=== PATIENT | male | born 1955 | race Caucasian/White ===

== ENCOUNTER 2017-12-23 01:45 | Inpatient (IN) | payer BC ==
[~2017-12-23] VITALS: Ht 177.8 cm; Wt 96.5 kg
[2017-12-23] MEDS ORDERED: SODIUM CHLORIDE FLUSH 10ML SYR IVF ONE (02:00)
[2017-12-23 02:19] LABS: BASOPHILS # (AUTO) 0.02 x10^3/uL (0-0.1); BASOPHILS % (AUTO) 0 % (0-1); EOSINOPHILS # (AUTO) 0.12 x10^3/uL (0-0.4); EOSINOPHILS % (AUTO) 1 % (1-7); LYMPHOCYTES # (AUTO) 1.17 x10^3/uL (1-3.4); LYMPHOCYTES % (AUTO) 11 % (22-44); MD NO; MEAN CORPUSCULAR HEMOGLOBIN 29.5 pg (27.5-34.5); MEAN CORPUSCULAR VOLUME 86.8 fL (81-97); MEAN PLATELET VOLUME 8.1 fL (7.4-10.4); MONOCYTES # (AUTO) 0.29 x10^3/uL (0.2-0.8); MONOCYTES % (AUTO) 3 % (2-9); NEUTROPHILS # (AUTO) 8.64 x10^3/uL (1.8-6.8); NEUTROPHILS % (AUTO) 84 % (42-75); PLATELET COUNT 240 x10^3/uL (130-400); RED BLOOD COUNT 4.15 x10^6/uL (4.38-5.82); RED CELL DISTRIBUTION WIDTH 13.4 % (9.4-14.8)
[2017-12-23 02:30] LABS: ALANINE AMINOTRANSFERASE 27 U/L (12-78); ALBUMIN 3.1 g/dL (3.4-5.0); ANION GAP 9 mmol/L (5-15); CALCIUM 8.2 mg/dL (8.5-10.1); CHLORIDE 105 mmol/L (98-107); CREATININE 1.17 mg/dL (0.7-1.3)
[2017-12-23 02:33] LABS: ALKALINE PHOSPHATASE 43 U/L (45-117); BILIRUBIN,TOTAL 1.3 mg/dL (0.2-1.0)
[2017-12-23 02:38] LABS: TROPONIN I < 0.015 ng/mL (0.000-0.045)
[2017-12-23] MEDS ORDERED: ONDANSETRON ODT 4 MG ONE (02:40)
[2017-12-23] MEDS ORDERED: MORPHINE SULFATE 4 MG/ML, 1ML ONE (02:41)
[2017-12-23] MEDS ORDERED: ONDANSETRON ODT 4 MG PO ONE (03:00)
[2017-12-23] MEDS ORDERED: MORPHINE SULFATE 4 MG/ML, 1ML IVPush PRN (03:00)
[2017-12-23] MEDS ORDERED: OMNIPAQUE 350 MG/ML, 100ML BOTTLE ONE (03:26)
[2017-12-23] MEDS ORDERED: MULT-508 PO (03:41)
[2017-12-23] MEDS ORDERED: METF500T17 PO (03:41)
[2017-12-23] MEDS ORDERED: PRAV10TA2 PO (03:41)
[2017-12-23] MEDS ORDERED: UBID10CA5 PO (03:41)
[2017-12-23] MEDS ORDERED: LOSA1TAB25 PO (03:41)
[2017-12-23] MEDS ORDERED: PANTOPRAZOLE 80 MG in SODIUM CHLORIDE 0.9% 50 ML IVPB ONE (04:23)
[2017-12-23] MEDS ORDERED: hydrALAzine 20 MG/ML, 1ML IVPush PRN (04:30)
[2017-12-23] MEDS ORDERED: ONDANSETRON 2MG/ML, 2ML IVPush PRN (04:30)
[2017-12-23] MEDS ORDERED: METOCLOPRAMIDE 5 MG/ML, 2ML IVPush PRN (04:30)
[2017-12-23] MEDS ORDERED: morphine SULFATE 10 MG/ML, 1ML IVPush PRN (04:30)
[2017-12-23] MEDS: SODIUM CHLORIDE 0.9% 1,000 ML IV SCH ×2 (04:53→17:37)
[2017-12-23 04:57] LABS: MICROSCOPIC NOT IND
[2017-12-23 04:59] LABS: CULTURE INDICATED? NO
[2017-12-23 05:16] VITALS: BP 115/79
[2017-12-23] MEDS: INSULIN LISPRO 100 UNITS/ML, PEN SQ-INSULIN SCH ×4 (07:00→21:00)
[2017-12-23 08:08] VITALS: BP 113/78
[2017-12-23] MEDS: PANTOPRAZOLE 40 MG IV IVPush SCH ×2 (09:14→22:03)
[2017-12-23 13:34] VITALS: BP 121/75
[2017-12-23] MEDS: MOVIPREP POWDER 1 PREP KIT PO SCH (19:24)
[2017-12-23 20:00] VITALS: BP 132/78
[2017-12-24 01:18] VITALS: BP 128/75
[2017-12-24] MEDS: MOVIPREP POWDER 1 PREP KIT PO SCH (03:51)
[2017-12-24] MEDS: SODIUM CHLORIDE 0.9% 1,000 ML IV SCH (03:52)
[2017-12-24 06:06] LABS: BASOPHILS # (AUTO) 0.02 x10^3/uL (0-0.1); BASOPHILS % (AUTO) 0 % (0-1); EOSINOPHILS # (AUTO) 0.21 x10^3/uL (0-0.4); EOSINOPHILS % (AUTO) 3 % (1-7); LYMPHOCYTES # (AUTO) 2.25 x10^3/uL (1-3.4); LYMPHOCYTES % (AUTO) 27 % (22-44); MD NO; MEAN CORPUSCULAR HEMOGLOBIN 29.8 pg (27.5-34.5); MEAN CORPUSCULAR HGB CONC 34.5 g/dL (33.2-36.2); MEAN CORPUSCULAR VOLUME 86.5 fL (81-97); MEAN PLATELET VOLUME 8.4 fL (7.4-10.4); MONOCYTES # (AUTO) 0.34 x10^3/uL (0.2-0.8); MONOCYTES % (AUTO) 4 % (2-9); NEUTROPHILS # (AUTO) 5.51 x10^3/uL (1.8-6.8); NEUTROPHILS % (AUTO) 66 % (42-75); PLATELET COUNT 241 x10^3/uL (130-400); RED BLOOD COUNT 3.69 x10^6/uL (4.38-5.82); RED CELL DISTRIBUTION WIDTH 13.8 % (9.4-14.8)
[2017-12-24 06:12] LABS: CHLORIDE 109 mmol/L (98-107)
[2017-12-24 06:17] LABS: ANION GAP 11 mmol/L (5-15); CREATININE 1.16 mg/dL (0.7-1.3)
[2017-12-24] MEDS: INSULIN LISPRO 100 UNITS/ML, PEN SQ-INSULIN SCH ×4 (07:00→21:00)
[2017-12-24 07:24] VITALS: BP 113/62
[2017-12-24 07:25] VITALS: BP 124/82
[2017-12-24 07:26] VITALS: BP 122/83
[2017-12-24] MEDS ORDERED: D5%-0.45NACL+KCL 20MEQ 1,000 ML IV SCH (09:00)
[2017-12-24] MEDS: NEUTRA PHOS K 250 MG TABLET PO SCH ×3 (09:41→21:10)
[2017-12-24] MEDS: PANTOPRAZOLE 40 MG IV IVPush SCH ×2 (09:41→21:11)
[2017-12-24] MEDS ORDERED: PROPOFOL 10 MG/ML, 20ML ONE (12:57)
[2017-12-24] MEDS ORDERED: OXYcodone 5 MG/5 ML ORAL.SOL UDC PO PRN (14:00)
[2017-12-24] MEDS ORDERED: ONDANSETRON 2MG/ML, 2ML IV PRN (14:00)
[2017-12-24] MEDS ORDERED: ONDANSETRON ODT 8 MG PO PRN (14:00)
[2017-12-24] MEDS ORDERED: ACETAMINOPHEN 325 MG TABLET PO PRN (14:00)
[2017-12-24 14:30] VITALS: BP 136/82
[2017-12-24] MEDS: SUCRALFATE 1 GM/10 ML UDC PO SCH ×2 (16:16→21:10)
[2017-12-24 19:47] VITALS: BP 138/80
[2017-12-25 00:43] VITALS: BP 140/82
[2017-12-25 05:51] LABS: ALANINE AMINOTRANSFERASE 27 U/L (12-78); ALBUMIN 3.1 g/dL (3.4-5.0); ANION GAP 5 mmol/L (5-15); CALCIUM 7.7 mg/dL (8.5-10.1); CHLORIDE 110 mmol/L (98-107); CREATININE 0.93 mg/dL (0.7-1.3)
[2017-12-25 05:53] LABS: ALKALINE PHOSPHATASE 38 U/L (45-117); BASOPHILS # (AUTO) 0.03 x10^3/uL (0-0.1); BASOPHILS % (AUTO) 0 % (0-1); BILIRUBIN,TOTAL 0.8 mg/dL (0.2-1.0); EOSINOPHILS # (AUTO) 0.24 x10^3/uL (0-0.4); EOSINOPHILS % (AUTO) 3 % (1-7); LYMPHOCYTES % (AUTO) 21 % (22-44); MD NO; MEAN CORPUSCULAR HEMOGLOBIN 29.5 pg (27.5-34.5); MEAN CORPUSCULAR HGB CONC 33.9 g/dL (33.2-36.2); MEAN CORPUSCULAR VOLUME 86.9 fL (81-97); MEAN PLATELET VOLUME 8.1 fL (7.4-10.4); MONOCYTES # (AUTO) 0.33 x10^3/uL (0.2-0.8); MONOCYTES % (AUTO) 5 % (2-9); NEUTROPHILS # (AUTO) 5.17 x10^3/uL (1.8-6.8); NEUTROPHILS % (AUTO) 71 % (42-75); PLATELET COUNT 228 x10^3/uL (130-400); RED BLOOD COUNT 3.42 x10^6/uL (4.38-5.82); RED CELL DISTRIBUTION WIDTH 13.1 % (9.4-14.8); TOTAL PROTEIN 5.7 g/dL (6.4-8.2)
[2017-12-25] MEDS: INSULIN LISPRO 100 UNITS/ML, PEN SQ-INSULIN SCH ×2 (07:00→11:00)
[2017-12-25 07:36] VITALS: BP 134/86
[2017-12-25] MEDS: SUCRALFATE 1 GM/10 ML UDC PO SCH ×2 (08:05→11:09)
[2017-12-25] MEDS: PANTOPRAZOLE 40 MG IV IVPush SCH (08:05)
[2017-12-25 12:23] VITALS: BP 148/83
[2017-12-25 12:44] LABS: HEMOGLOBIN A1C 6.9 % (4.2-6.3)
[2017-12-25] MEDS ORDERED: OMEP-110 PO (14:46)
[2017-12-25] MEDS ORDERED: SUCR1ORA5 PO (14:46)
[2017-12-25] MEDS ORDERED: OMEPRAZOLE 20 MG CAPSULE.DR PO SCH (17:00)
== END 2017-12-25 16:47 | disposition home or self-care (01) | DRG 391 ==
LOC: ED 03:26 → EDIP 04:10 → 4EST 05:30 → DCLOUNGE 12-25 16:30
PROVIDERS: ADMIT Hospitalist; ATTEND Hospitalist
PROC: 0DJD8ZZ Inspection of Lower Intestinal Tract, Via Natural or Artificial Opening Endoscopic (ICD-10-PCS; 2017-12-24)
PROC: 0DJ08ZZ Inspection of Upper Intestinal Tract, Via Natural or Artificial Opening Endoscopic (ICD-10-PCS; principal; 2017-12-24 13:00)
DX: K52.9 Noninfective gastroenteritis and colitis, unspecified (principal); K22.11 Ulcer of esophagus with bleeding; K57.31 Diverticulosis of large intestine without perforation or abscess with bleeding; K25.4 Chronic or unspecified gastric ulcer with hemorrhage; D62 Acute posthemorrhagic anemia; K64.8 Other hemorrhoids; E11.65 Type 2 diabetes mellitus with hyperglycemia; E66.9 Obesity, unspecified; E78.00 Pure hypercholesterolemia, unspecified; E78.5 Hyperlipidemia, unspecified; G89.29 Other chronic pain; I10 Essential (primary) hypertension; R55 Syncope and collapse; K44.9 Diaphragmatic hernia without obstruction or gangrene; K80.20 Calculus of gallbladder without cholecystitis without obstruction; S09.90XA Unspecified injury of head, initial encounter; W18.30XA Fall on same level, unspecified, initial encounter; Y93.89 Activity, other specified; Y92.008 Other place in unspecified non-institutional (private) residence as the place of occurrence of the external cause; Y99.8 Other external cause status; S16.1XXA Strain of muscle, fascia and tendon at neck level, initial encounter; Z79.1 Long term (current) use of non-steroidal anti-inflammatories (NSAID); Z86.010 Personal history of colon polyps; Z87.19 Personal history of other diseases of the digestive system; Z96.652 Presence of left artificial knee joint; M25.562 Pain in left knee
CPT/HCPCS: 36415; 70450; 71045; 72072; 72125; 74177; 80048; 80053; 81003; 82962; 83036; 83690; 83735; 84100; 84484; 85014; 85018; 85025; 93005; 96374; 96375; 99285; G0378; J2704; Q0162; Q9967; C9113; J2270; J2765; J3480; J7030